=== PATIENT | male | born 1990 | race Caucasian/White ===

== ENCOUNTER 2023-05-15 20:02 | Emergency (ER) | payer SELFPAY ==
[2023-05-15] MEDS ORDERED: METHOCARBAMOL 1,000 MG/10 ML VIAL ONE (21:17)
[2023-05-15] MEDS ORDERED: FENTANYL CITR 100 MCG/2 ML ONE (21:17)
[2023-05-15] MEDS ORDERED: NA CHLORIDE 0.9% 100 ML ONE (21:17)
[2023-05-15 21:24] LABS: Absolute Lymphocytes (CBC) 0.9 K/uL (0.7-4.9); Hematocrit 43.9 % (39.6-49.0); Lymphocytes % 4.3 % (15.3-44.8); MCV 93.2 fL (80-100); Platelets 232 thou/uL (152-406); RBC Red Blood Cell Count 4.71 M/uL (4.33-5.43)
[2023-05-15 21:26] LABS: Potassium 3.5 mEq/L (3.5-5.1)
[2023-05-15 21:40] LABS: Blood Morphology Comment NOT SEEN (NOT SEEN); Platelet Estimate ADEQ
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
[2023-05-15] MEDS ORDERED: MORPHINE 4 MG/ML SYR ONE (22:50)
[2023-05-15] MEDS ORDERED: ONDANSETRON 4 MG/2 ML VIAL ONE (22:50)
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
[2023-05-16 00:55] VITALS: O2SAT 100
[2023-05-16 00:59] VITALS: BP 148/115
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
== END 2023-05-16 00:11 | disposition short-term general hospital (02) ==
LOC: ER 20:02
DX: S22.42XA Multiple fractures of ribs, left side, initial encounter for closed fracture (principal); J93.9 Pneumothorax, unspecified; J94.2 Hemothorax; V47.5XXA Car driver injured in collision with fixed or stationary object in traffic accident, initial encounter
CPT/HCPCS: 36415; 70450; 71045; 71260; 72125; 74177; 80048; 85025; 86850; 86900; 86901; 99285; J2405; J2800; J3010; Q9967